=== PATIENT | male | born 1945 | race Caucasian/White ===

== ENCOUNTER 2017-02-10 07:49 | Day surgery (SDC) | payer OTHER ==
[2017-02-10] MEDS ORDERED: NS 1,000 ML IV ONE (07:53)
[2017-02-10] MEDS ORDERED: diphenhydrAMINE 25 MG CAP PO ONE ×2 (07:53→08:37)
[2017-02-10] MEDS ORDERED: FAMOTIDINE 20 MG TAB PO ONE (07:53)
[2017-02-10] MEDS ORDERED: DIAZEPAM 5 MG TAB PO ONE (07:53)
[2017-02-10] MEDS ORDERED: ASPIRIN EC 325 MG TAB PO ONE ×2 (07:53→08:38)
--- NOTE | 2017-02-10 08:22 | CPEKG ---
Heart Rate: 61 RR Interval: 984 P-R Interval: 184 QRSD Interval: 88 QT Interval: 424 QTC Interval: 427 P Santa Claus: 68 QRS Santa Claus: 52 T Wave Santa Claus: 40 EKG Severity - NORMAL ECG - EKG Impression: SINUS RHYTHM Electronically Signed By: Andrei Craft 11-Feb-2017 18:22:07
[2017-02-10] MEDS ORDERED: FAMOTIDINE 20 MG TAB ONE (08:38)
[2017-02-10] MEDS ORDERED: DIAZEPAM 5 MG TAB ONE (08:38)
[2017-02-10 08:47] LABS: % IMMATURE GRANULYOCYTES 0.2 % (0.0-1.1); ABSOLUTE IMMATURE GRANULOCYTES 0.01 10^3/uL (0.00-0.10); ADD DIFF? NO; ADD MORPH? NO; ADD SCAN? NO; ATYPICAL LYMPHOCYTE FLAG 10 (0-99); FRAGMENT RBC FLAG 0 (0-99); HEMATOCRIT 44.3 % (40.0-51.0); HEMOGLOBIN 15.3 g/dL (13.7-17.5); LEFT SHIFT FLG 0 (0-99); LIPEMIA HEMOLYSIS FLAG 90 (0-99); MEAN CELL HEMOGLOBIN 32.4 pg (27.9-34.1); MEAN CELL HEMOGLOBIN CONCENTR. 34.5 g/dL (32.4-36.7); MEAN CELL VOLUME 93.9 fL (81.5-99.8); MEAN PLATELET VOLUME 11.1 fL (8.7-11.7); PLATELET CLUMPS FLAG 10 (0-99); PLATELET COUNT 190 10^3/uL (150-400); RED BLOOD CELL COUNT 4.72 10^6/uL (4.40-6.38); RED CELL DISTRIBUTION WIDTH 12.1 % (11.5-15.2)
[2017-02-10 09:06] LABS: ANION GAP 8 mEq/L (8-16); CALCIUM 9.2 mg/dL (8.5-10.4); CARBON DIOXIDE 27 mEq/l (22-31); CHLORIDE 106 mEq/L (97-110); CHOLESTEROL 139 mg/dL (140-220); CHOLESTEROL/HDL RATIO 2.96 RATIO (1.00-4.97); CREATININE 0.8 mg/dL (0.7-1.3); GLOMERULAR FILTRATION RATE > 60; GLUCOSE 86 mg/dL (70-100); HIGH DENSITY LIPOPROTEIN 47 mg/dL (40-65); LOW DENSITY LIPOPROTEIN 75 mg/dL (80-100); MAGNESIUM 2.1 mg/dL (1.6-2.3); NON-HIGH DENSITY LIPOPROTEIN 92 mg/dL (90-129); POTASSIUM 4.2 mEq/L (3.5-5.2); SODIUM 141 mEq/L (134-144); TRIGLYCERIDE 89 mg/dL (40-150); VERY LOW DENSITY LIPOPROTEINS 17 mg/dL (8-25)
[2017-02-10 09:16] LABS: INR 1.04 (0.83-1.16); PROTIME(PATIENT) 13.5 SEC (12.0-15.0)
[2017-02-10] MEDS ORDERED: MIDAZOLAM 2 MG/2 ML VIAL ONE (09:37)
[2017-02-10] MEDS ORDERED: LIDOCAINE 1% 30 ML SDV ONE (09:37)
[2017-02-10] MEDS ORDERED: fentaNYL 100 MCG/2 ML INJ ONE (09:37)
[2017-02-10] MEDS ORDERED: VERAPAMIL 5 MG/2 ML VIAL ONE (09:38)
[2017-02-10] MEDS ORDERED: HEPARIN 10,000 UNIT/10 ML MDV ONE (09:38)
[2017-02-10] MEDS ORDERED: IOPAMIDOL (ISOVUE 370) 100 ML BTL IV ONE (09:39)
--- NOTE | 2017-02-10 11:14 | CPIP ---
[f rep st] INVASIVE CARDIAC PROCEDURE DATE OF PROCEDURE: 02/10/2017 INDICATIONS: Known coronary disease, abnormal nuclear stress test, worsening hypertension. PROCEDURES PERFORMED: 1. Left heart catheterization. 2. Coronary angiography. COMPLICATIONS: None. DESCRIPTION OF PROCEDURE: N.p.o. status was confirmed, informed consent obtained, and time-out perf ormed. The patient was brought to the catheterization laboratory and prepped and draped in sterile fashion. Adequate conscious sedation was achieved with Versed and fentanyl IV. 1% lidocaine was us ed for local anesthesia of the right radial area. Using modified Seldinger technique, a 5-Kiswahili in troducer sheath was placed in the right radial artery. JR4 and JL3.5 catheters were used for romo ry angiography. Ultimately, a JR4 catheter was used for LV and diastolic pressure. FINDINGS: 1. The left main has minimal plaquing, at most 10% stenosis. It bifurcates into the LAD and left c ircumflex. 2. The LAD is a medium-sized vessel reaching the apex. There are 2 small diagonal branches. There are minimal luminal irregularities throughout the LAD and its branches. 3. The circumflex has 2 principal obtuse marginals. No significant disease. 4. The right coronary artery is dominant and also includes a branching PLB branch. No significant stenosis. HEMODYNAMICS: Aortic pressure is 177/83. LV pressure 154/2 with an end-diastolic pressure of 20. There is no aortic stenosis. We did not perform left ventriculography as the patient had recently had an echocardiogram with norm al left ventricular ejection fraction. CONCLUSIONS: 1. Minimal diffuse coronary disease in this right dominant system. 2. Systemic hypertension. 3. Intensify medical management for the patient's hypertension and other coronary risk factors. 4. Right radial arteriotomy site was sealed with a TR band. 5. Patient taken to the CVC in stable condition. Results discussed with the patient and his . Copy requested to: OSWALD /[id number]/[id number]
== END 2017-02-10 15:44 | disposition home or self-care (01) ==
LOC: FCATH 07:49
PROVIDERS: ATTEND Internal Medicine Cardiovascular Disease
PROC: B2151ZZ Fluoroscopy of Left Heart using Low Osmolar Contrast (ICD-10-PCS; principal; 2017-02-10)
PROC: 4A023N7 Measurement of Cardiac Sampling and Pressure, Left Heart, Percutaneous Approach (ICD-10-PCS; principal; 2017-02-10)
PROC: B2111ZZ Fluoroscopy of Multiple Coronary Arteries using Low Osmolar Contrast (ICD-10-PCS; principal; 2017-02-10)
DX: R94.39 Abnormal result of other cardiovascular function study (principal); I25.10 Atherosclerotic heart disease of native coronary artery without angina pectoris; I10 Essential (primary) hypertension; E78.5 Hyperlipidemia, unspecified; I35.1 Nonrheumatic aortic (valve) insufficiency; Z96.641 Presence of right artificial hip joint; Z88.0 Allergy status to penicillin
CPT/HCPCS: 93005; 93458; C1769; J1644; J2250; J3010; Q9967